=== PATIENT | female | born 1960 | race Caucasian/White ===

== ENCOUNTER → 2016-09-08 | Outpatient (CLI) | payer MEDICAID ==
--- NOTE | 2016-09-09 12:04 | MM ---
Reason for exam: screening (asymptomatic). Last mammogram was performed 1 year and 9 months ago. History: Patient is postmenopausal. Took estrogen for 10 years. Took progesterone for 10 years. Physical Findings: A clinical breast exam by your physician is recommended on an annual basis and results should be correlated with mammographic findings. MG 3D Screening Mammo W/Cad Bilateral CC and MLO view(s) were taken. Prior study comparison: December 11, 2014, right breast MG diagnostic mammo RT w CAD. April 17, 2014, bilateral MG diagnostic mammo w CAD ALETHA. There are scattered fibroglandular densities. No significant changes when compared with prior studies. ASSESSMENT: Benign, BI-RAD 2 RECOMMENDATION: Routine screening mammogram of both breasts in 1 year.
== END | disposition home or self-care (01) ==
LOC: RADMAMWWP 07:58
PROVIDERS: ATTEND Family Medicine
DX: Z12.31 Encounter for screening mammogram for malignant neoplasm of breast (principal)
CPT/HCPCS: 77063; G0202

== ENCOUNTER → 2018-02-05 | Outpatient (CLI) | payer BC ==
[2018-02-05 09:48] LABS: Basophils # (A) 0.1 k/uL (0-0.2); Basophils % (A) 1 %; Eosinophils # (A) 0.2 k/uL (0-0.7); Eosinophils % (A) 3 %; HCT 44.7 % (34.0-46.0); HGB 14.2 gm/dL (11.4-16.0); Lymphocytes # (A) 2.3 k/uL (1.0-4.8); Lymphocytes % (A) 30 %; MCH 28.6 pg (25.0-35.0); MCHC 31.7 g/dL (31.0-37.0); MCV 90.2 fL (80.0-100.0); Mean Platelet Volume 6.9; Monocytes # (A) 0.5 k/uL (0-1.0); Monocytes % (A) 6 %; Neutrophils # (A) 4.5 k/uL (1.3-7.7); Neutrophils % (A) 58 %; Platelet Count 340 k/uL (150-450); RBC 4.96 m/uL (3.80-5.40); RDW 13.4 % (11.5-15.5); WBC 7.7 k/uL (3.8-10.6)
[2018-02-05 10:03] LABS: Anion Gap 12 mmol/L; Blood Urea Nitrogen 14 mg/dL (7-17); Carbon Dioxide 27 mmol/L (22-30); Chloride 105 mmol/L (98-107); Glucose 74 mg/dL (74-99); Potassium 4.1 mmol/L (3.5-5.1); Sodium 144 mmol/L (137-145)
== END | disposition home or self-care (01) ==
LOC: LABPAT 09:25
PROVIDERS: ATTEND Obstetrics & Gynecology
DX: Z01.812 Encounter for preprocedural laboratory examination (principal); N81.6 Rectocele; N39.3 Stress incontinence (female) (male); N36.8 Other specified disorders of urethra
CPT/HCPCS: 80051; 82565; 82947; 84520; 85025; 87086

== ENCOUNTER 2018-02-14 07:55 | Day surgery (SDC) | payer BC ==
[2018-02-03 10:26] VITALS: BMI 29.7
--- NOTE | 2018-02-10 16:44 | HP ---
HISTORY AND PHYSICAL DATE OF PROCEDURE: 02/14/2018 HISTORY: This is a 57-year-old 2, para 2 woman with a history of vaginal hysterectomy who presents with symptomatic rectocele and stress urinary incontinence. She is scheduled to undergo rectocele repair, suburethral sling placement and possible cystocele repair. She complains of frequent stress urinary incontinence as well as an uncomfortable bulging pressure sensation in the vagina. She has difficulty with incomplete bladder emptying and pain with intercourse. ALLERGIES: SULFA MEDICATIONS. PAST MEDICAL HISTORY: None. PAST SURGICAL HISTORY: 1. Total vaginal hysterectomy with unilateral salpingo-oophorectomy in 1992. 2. Abdominal hernia repair x2 in 2000. 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 She has had a hysterectomy. No history of abnormal Pap smears or STDs. SOCIAL HISTORY: She is . Negative for tobacco, alcohol and drug use. MEDICATIONS: 1. Estradiol patch 0.5 mg per 24 hours. 2. Baclofen 10 mg daily. 3. Belsomra 10 mg daily. 4. Claritin-D p.r.n. 5. [place]-3 fish oil. 6. Vitamin D. REVIEW OF SYSTEMS: Positive for pelvic pressure, dyspareunia, stress urinary incontinence. Negative for postmenopausal bleeding, recent weight gain or weight loss, nausea, vomiting, diarrhea, fevers, chills, shortness of breath, chest pain or palpitations. PHYSICAL EXAMINATION: Blood pressure 128/88, height 5 feet 5-3/4 inches, weight 179 pounds. In general, this is a pleasant female in no apparent distress. HEENT exam is unremarkable with no palpable lymphadenopathy or thyromegaly. The lungs are clear to auscultation bilaterally. The heart has a regular rate and rhythm with no detectable murmur. The breasts are free of any palpable lesions. The abdomen is slim, soft and nontender with no rebound, no guarding and no flank pain. On pelvic examination, she has normal female external genitalia with some atrophy. On speculum examination, she does have evidence of a third- to fourth-degree rectocele, second-degree cystocele and well suspended vaginal cuff. She has a hypermobile urethra. On bimanual examination she has no palpable adnexal masses. ASSESSMENT: [id number]-[id number]-[id number]-old 3, para 2 woman with symptomatic large rectocele and stress urinary incontinence. She is scheduled to undergo rectocele repair, suburethral sling placement with Dr. Brielle Yepez and possible cystocele repair on 02/14/2018. Late in her preoperative planning course she did have an abnormal screening EKG, and cardiac clearance is pending. The case will be only undertaken pending complete cardiac clearance. Otherwise she is scheduled for 02/14/2018. MMCONSUELOL / IJN: [id number] /
[~2018-02-14 07:55] MED LIST: DEXAMETHASONE SOD PHOSPHATE 10 MG/ML 1 ML VIAL IV ONE; HYDROmorphone 0.5 MG/0.5 ML SYRINGE IVP PRN; LACTATED RINGERS 1,000 ML IV SCH; LIDOCAINE 1% 20 ML VIAL (10MG/ML) FOR IV START INTRADERMA PRN; MIDAZOLAM 2 MG/2 ML VIAL IV PRN; ONDANSETRON 4 MG/2 ML VIAL IVP ONE; ONDANSETRON 4 MG/2 ML VIAL IVP PRN; SCOPOLAMINE 1.5MG/72HR PATCH TRANSDERM ONE; ceFAZolin IN SWFI 2 GM/20 ML SYRINGE IVP ONE; fentaNYL (PF) 50 MCG/ML 2 ML AMP IV PRN
[2018-02-14] MEDS: LACTATED RINGERS 1,000 ML IV SCH ×2 (08:35→12:39)
[2018-02-14] MEDS ORDERED: HYDROmorphone (PF) 1 MG/ML ONE (09:24)
[2018-02-14] MEDS ORDERED: fentaNYL (PF) 50 MCG/ML 2 ML AMP ONE (09:24)
[2018-02-14] MEDS ORDERED: SUCCINYLCHOLINE CHLORIDE 100 MG/5 ML SYR IV ONE (09:24)
[2018-02-14] MEDS ORDERED: LIDOCAINE 1% INJ 10MG/ML (20 ML MDV) ONE (09:24)
[2018-02-14] MEDS ORDERED: MIDAZOLAM 2 MG/2 ML VIAL ONE (09:24)
[2018-02-14] MEDS ORDERED: PROPOFOL 10 MG/ML 20 ML VIAL IV ONE (09:24)
[2018-02-14] MEDS ORDERED: KETOROLAC 30 MG/ML 1 ML VIAL ONE (09:24)
[2018-02-14] MEDS ORDERED: VASOPRESSIN 20 UNIT/ML 1 ML VIAL SQ ONE (09:53)
[2018-02-14] MEDS ORDERED: BACITRACIN 500 UNIT/GM OINT 28.4 GM TUBE TOPICAL ONE (09:55)
--- NOTE | 2018-02-14 10:39 | P.OP ---
Date of Procedure: 02/14/18 Preoperative Diagnosis: Third-degree rectocele Second-degree cystocele Stress urinary incontinence Postoperative Diagnosis: Same Procedure(s) Performed: Posterior colporrhaphy Suburethral sling placement and cystoscopy Anesthesia: RAZA Surgeon: Ayah Anthony Coat Joiner Lockstitch #1: Brielle Yepez Estimated Blood Loss (ml): 5 IV fluids (ml): 900 Urine output (ml): 400 Pathology: none sent Condition: stable Disposition: PACU Indications for Procedure: Symptomatic pelvic prolapse and stress urinary incontinence Operative Findings: 34th degree rectocele, second degree cystocele, hypermobile urethra. Description of Procedure: After the patient and her were met in preoperative holding area and all questions are answered, she was taken the operating room where anesthetic was administered without incident. She was in positioned, prepped and draped in the dorsal high lithotomy position. The vagina was inspected and examined anesthetic was performed. She does have a gaping introitus and rectocele protruding to the level and beyond of the hymeneal ring. The remnants of the hymeneal ring were delineated with Allis clamps. The perineum and posterior vaginal mucosa was then infused with dilute vasopressin solution. A triangular incision was made on the perineum. The posterior vaginal mucosa was then undermined with Metzenbaum scissors to the apex of the defect. This is delineated with Allis clamps. The underlying rectovaginal tissue was bluntly dissected away from the overlying rectal vaginal mucosa. The rectovaginal fascia was then identified and was reapproximated in an interrupted fashion using 2-0 Vicryl [id number] sutures. This effectively reduced the rectocele. The excess vaginal mucosa was then trimmed. The posterior vaginal mucosa closed in a running locked fashion to the level of the introitus. [place] stitch was then placed into the [id number] sutures were placed to reapproximate the perineal body. The skin Closed Overtop in a Subcuticular Fashion. No Active Bleeding Was Noted. 2 Fingerbreadth Width of Vagina Was Preserved. Case Was Then Turned over This Point to Dr. Anna Performed the CO2 Procedure Please See Her Operative Report for Details. Her
--- NOTE | 2018-02-14 10:59 | P.OP ---
Date of Procedure: 02/14/18 Preoperative Diagnosis: Rectocele, stress urinary incontinence Postoperative Diagnosis: Same Procedure(s) Performed: transobturator tape with obtyrx, diagnostic cystoscopy Anesthesia: SHIVAMA Surgeon: Brielle Yepez Belt Builder Helper #1: Ayah Anthony Estimated Blood Loss (ml): 5 IV fluids (ml): 900 Urine output (ml): 100 (Clear yellow) Pathology: none sent Condition: stable Disposition: PACU Indications for Procedure: Stress urinary incontinence Operative Findings: Grade 2 cystocele was noted on exam with mild mobility of the bladder neck Description of Procedure: Patient was in the operative suite and rectocele repair had just been completed with Dr. lynette willis. I inspected the cyst seal felt it to be mild, the bladder neck was identified and 2 Allis clamps are placed on the vaginal mucosa around the bladder neck. The vaginal mucosa was then injected with dilute vasopressin down the midline and toward the lateral edges. A scalpel was then used to make a small incision in the vaginal mucosa the vaginal mucosa was then dissected off of the bladder and a blunt fashion bilaterally. The concrete finishing machine operator membrane was then palpated on both sides. A stab incision was then made in the lateral groin creases bilaterally. The obtryx trans-obturator tape was then opened, the right hook was then placed through the stab incision in the groin toward the obturator membrane and vaginal incision. The mesh was then attached and pulled through this was then repeated on the opposite side. At this point the Shipman catheter was removed and a diagnostic cystoscopy was performed. Asst. was placed through the urethra and toward the bladder bladder bubble was noted and a complete survey of the bladder revealed no injuries both ureteral orifices were noted to be spilling clear yellow urine. The cystoscopy fluid was removed and the Shipman catheter was replaced. The mesh was then placed snugly, natalioley against the bladder neck. The vaginal mucosa was then closed with 2-0 Vicryl in a running locked fashion. The groin incisions were then closed with Dermabond. Next Patient tolerated procedure well, all counts were correct 2 patient was taken to the recovery room at this point in stable condition
[2018-02-14] MEDS ORDERED: IBUPROFEN 600 MG TAB PO PRN (11:27)
[2018-02-14] MEDS ORDERED: ONDANSETRON 4 MG/2 ML VIAL IVP PRN (11:27)
[2018-02-14] MEDS ORDERED: ESTRADIOL TRANSDERM SCH (11:27)
[2018-02-14] MEDS ORDERED: SIMETHICONE 80 MG CHEWABLE PO PRN (11:27)
[2018-02-14] MEDS ORDERED: METOCLOPRAMIDE 5 MG/ML 2 ML VIAL IVP PRN (11:27)
[2018-02-14] MEDS: KETOROLAC 30 MG/ML 1 ML VIAL IVP PRN ×2 (14:00→20:16)
[2018-02-14] MEDS ORDERED: Acetaminophen-Codeine 300-30mg TAB PO PRN (14:59)
[2018-02-14] MEDS: Acetaminophen-Codeine 300-30mg TAB PO PRN ×2 (15:09→21:20)
[2018-02-14] MEDS: SENNOSIDES-DOCUSATE SODIUM 1 EACH TAB PO SCH (20:17)
[2018-02-15 04:24] VITALS: TEMP 98.1
--- NOTE | 2018-02-15 08:18 | P.DS ---
Providers Expected date of discharge: 02/15/18 Attending physician: Ayah Anthony Primary care physician: Zulma Mcduffie - Discharge Diagnosis(es) (1) Cystocele Current Visit: Yes Status: Acute (2) Rectocele Current Visit: Yes Status: Acute (3) EILEEN (stress urinary incontinence, female) Current Visit: Yes Status: Acute Hospital Course: This is a 57-year-old female who is admitted with symptomatic pelvic prolapse and stress urinary incontinence. Following admission she went to the operating room where she underwent an uncomplicated posterior colporrhaphy and suburethral sling placement. Please see the operative report for details. Her postoperative course was uneventful. By the afternoon of postoperative day 0 she was tolerating a general diet and was ambulating without difficulty. Her pain was controlled with oral pain medications. By postoperative day #1 she continued to do well. She was able to void spontaneously with her Shipman catheter removed. The vaginal packing had been removed and she had no active vaginal bleeding. Her abdomen is soft and nontender and her vital signs are stable. She is therefore discharged home pending satisfactory results of her voiding trials and postoperative CBC. Procedures: Posterior colporrhaphy Suburethral sling placement Patient Condition at Discharge: Good Plan - Discharge Summary Discharge Rx Participant: No New Discharge Prescriptions: New Ibuprofen [Motrin] 800 mg PO Q8HR PRN #30 tab PRN Reason: Pain No Action Estradiol [Estradiol 0.05 MG Patch] 1 patch TRANSDERM Q72H Suvorexant [Belsomra] 10 mg PO HS PRN PRN Reason: Insomnia [place]-3 Fatty Acids/Fish Oil [Fish Oil 1,000 mg Softgel] 1 each PO DAILY Multivitamins, Thera [Multivitamin (formulary)] 1 tab PO DAILY Loratadine-Pseudoeph 10-240 mg [Claritin-D 24 Hr] 1 each PO DAILY PRN PRN Reason: ALLERGIES Baclofen 10 mg PO TID PRN PRN Reason: Muscle Spasm Discharge Medication List Baclofen 10 mg PO TID PRN 02/03/18 [History] Estradiol [Estradiol 0.05 MG Patch] 1 patch TRANSDERM Q72H 02/03/18 [History] Loratadine-Pseudoeph 10-240 mg [Claritin-D 24 Hr] 1 each PO DAILY PRN 02/03/18 [ History] Multivitamins, Thera [Multivitamin (formulary)] 1 tab PO DAILY 02/03/18 [History ] [place]-3 Fatty Acids/Fish Oil [Fish Oil 1,000 mg Softgel] 1 each PO DAILY [History] Suvorexant [Belsomra] 10 mg PO HS PRN 02/03/18 [History] Ibuprofen [Motrin] 800 mg PO Q8HR PRN #30 tab 02/15/18 [Rx] Follow up Appointment(s)/Referral(s): Ayah Anthony MD [STAFF PHYSICIAN] - 2 Weeks Activity/Diet/Wound Care/Special Instructions: Follow-up in the office in 2 weeks postoperatively. May alternate Motrin 800 mg every 8 hours with Tylenol extra strength every 6-8 hours as needed for pain. Use [id number]-[id number] Senokot or Colace as a stool softener once or twice a day as needed for 6 weeks. Call the office with any concerning signs or symptoms including heavy vaginal bleeding, foul vaginal discharge, inability to void, severe abdominal or pelvic pain, swelling or redness of the lower extremities. No intercourse, nothing in the vagina for 6 weeks. Discharge Disposition: HOME SELF-CARE
[2018-02-15 08:56] LABS: Basophils % (A) 0 %; Eosinophils # (A) 0.1 k/uL (0-0.7); Eosinophils % (A) 1 %; HCT 42.1 % (34.0-46.0); HGB 13.6 gm/dL (11.4-16.0); Lymphocytes # (A) 2.4 k/uL (1.0-4.8); Lymphocytes % (A) 15 %; MCHC 32.2 g/dL (31.0-37.0); MCV 89.9 fL (80.0-100.0); Monocytes # (A) 0.8 k/uL (0-1.0); Monocytes % (A) 5 %; Neutrophils # (A) 12.4 k/uL (1.3-7.7); Neutrophils % (A) 78 %; Platelet Count 326 k/uL (150-450); RBC 4.68 m/uL (3.80-5.40); RDW 13.2 % (11.5-15.5); WBC 15.8 k/uL (3.8-10.6)
[2018-02-15] MEDS: SENNOSIDES-DOCUSATE SODIUM 1 EACH TAB PO SCH (09:00)
[2018-02-15 09:40] VITALS: BP 134/76; PULSE 84; RESP 18
[2018-02-15] MEDS ORDERED: ACETAMINOPHEN TAB 325 MG TAB PO PRN (10:41)
== END 2018-02-15 10:49 | disposition home or self-care (01) ==
LOC: OR 07:55 → 4FBP 10:33 → OR 02-15 10:49
PROVIDERS: ATTEND Obstetrics & Gynecology
DX: N81.3 Complete uterovaginal prolapse (principal); N39.3 Stress incontinence (female) (male); Z79.890 Hormone replacement therapy; Z79.899 Other long term (current) drug therapy; Z88.2 Allergy status to sulfonamides; Z82.49 Family history of ischemic heart disease and other diseases of the circulatory system
CPT/HCPCS: 85025; 57288; 57250; C1771; J1100; J2405; J1885; J0690; 86850; 86900; 86901

== ENCOUNTER → 2021-04-08 | Outpatient (CLI) | payer BC ==
--- NOTE | 2021-04-14 12:28 | MM ---
Reason for exam: screening (asymptomatic). Last mammogram was performed 4 years and 7 months ago. History: Patient is postmenopausal. Took estrogen for 10 years. Took progesterone for 10 years. Physical Findings: A clinical breast exam by your physician is recommended on an annual basis and results should be correlated with mammographic findings. MG 3D Screening Mammo W/Cad Bilateral CC and MLO view(s) were taken. Prior study comparison: September 08, 2016, bilateral MG 3d screening mammo w/cad. December 11, 2014, right breast MG diagnostic mammo RT w CAD. There are scattered fibroglandular densities. No significant changes when compared with prior studies. ASSESSMENT: Benign, BI-RAD 2 RECOMMENDATION: Routine screening mammogram of both breasts in 1 year.
== END | disposition home or self-care (01) ==
LOC: RADMAMWWP 14:01
PROVIDERS: ATTEND Obstetrics & Gynecology
DX: Z12.31 Encounter for screening mammogram for malignant neoplasm of breast (principal); Z78.0 Asymptomatic menopausal state; Z79.818 Long term (current) use of other agents affecting estrogen receptors and estrogen levels
CPT/HCPCS: 77063; 77067

== ENCOUNTER 2021-06-07 11:30 | Emergency (ER) | payer BC ==
[2021-06-07 12:05] VITALS: RESP 18; TEMP 98.6
[2021-06-07] MEDS ORDERED: SODIUM CHLORIDE 0.9% 1,000 ML IV STA (12:16)
[2021-06-07] MEDS ORDERED: MORPHINE SULFATE 4 MG/ML SYRINGE IV STA (12:16)
[2021-06-07 12:44] LABS: Basophils # (A) 0.1 k/uL (0-0.2); Basophils % (A) 0 %; Eosinophils # (A) 0.2 k/uL (0-0.7); Eosinophils % (A) 1 %; HCT 49.3 % (34.0-46.0); HGB 16.1 gm/dL (11.4-16.0); Lymphocytes % (A) 6 %; MCH 30.8 pg (25.0-35.0); MCHC 32.7 g/dL (31.0-37.0); MCV 94.2 fL (80.0-100.0); Mean Platelet Volume 7.6; Monocytes # (A) 0.6 k/uL (0-1.0); Monocytes % (A) 3 %; Neutrophils # (A) 16.8 k/uL (1.3-7.7); Neutrophils % (A) 90 %; Platelet Count 339 k/uL (150-450); RBC 5.23 m/uL (3.80-5.40); RDW 12.2 % (11.5-15.5); WBC 18.7 k/uL (3.8-10.6)
--- NOTE | 2021-06-07 12:49 | ED ---
Abdominal Pain HPI - General Chief Complaint: Abdominal Pain Stated Complaint: abd pain Time Seen by Provider: 06/07/21 12:08 Source: patient, RN notes reviewed Mode of arrival: ambulatory Limitations: no limitations - History of Present Illness Initial Comments: Patient is a 60-year-old female that presents to the emergency department complaining of upper abdominal pain. She notes that she does have her gallbladder. She notes that the pain seems to be worse with greasy foods. She notes that last night she ate some bolus wings and cheesy bread. She notes that the pain was approximately a 10 out of 10 last night with minimal relief. She denied any alleviating factors. She notes that at one point she got was her gallbladder over the past several years to try to watch which she last night she is urged. She noted that she was nauseous prior to arrival but is no longer while sitting up in bed. She was otherwise well-appearing. She noted that her pain while in bed was approximately a 6-7 out of 10. She denied any chest pain shortness breath headache nausea vomiting diarrhea constipation fever fatigue chills. - Related Data Home Medications Medication Instructions Recorded Confirmed Baclofen 10 mg PO TID PRN 02/03/18 02/14/18 Loratadine-Pseudoeph 10-240 mg 1 each PO DAILY PRN 02/03/18 02/03/18 [Claritin-D 24 Hr] Multivitamins, Thera [Multivitamin 1 tab PO DAILY 02/03/18 02/03/18 (formulary)] [place]-3 Fatty Acids/Fish Oil [Fish 1 each PO DAILY 02/03/18 02/03/18 Oil 1,000 mg Softgel] Suvorexant [Belsomra] 10 mg PO HS PRN 02/03/18 02/03/18 estradioL [Estradiol 0.05 MG Patch] 1 patch TRANSDERM Q72H 02/03/18 02/14/18 Previous Rx's Medication Instructions Recorded Ibuprofen [Motrin] 800 mg PO Q8HR PRN #30 tab 02/15/18 Allergies Allergy/AdvReac Type Severity Reaction Status Date / Time Sulfa (Sulfonamide Allergy Rash/Hives Verified 06/07/21 12:05 Antibiotics) Review of Systems ROS Statement: Those systems with pertinent positive or pertinent negative responses have been documented in the HPI. ROS Other: All systems not noted in ROS Statement are negative. Past Medical History Past Medical History: No Reported History History of Any Multi-Drug Resistant Organisms: None Reported Past Surgical History: Hernia Repair, Hysterectomy Additional Past Surgical History / Comment(s): INCISIONAL HERNIA REPAIR, rectocele Past Anesthesia/Blood Transfusion Reactions: No Reported Reaction Past Psychological History: No Psychological Hx Reported Smoking Status: Never smoker Past Alcohol Use History: Occasional Past Drug Use History: None Reported - Past Family History Mother Family Medical History: No Reported History General Exam Limitations: no limitations General appearance: alert, in no apparent distress Head exam: Present: atraumatic, normocephalic, normal inspection Eye exam: Present: normal appearance, PERRL, EOMI. Absent: scleral icterus, conjunctival injection, periorbital swelling ENT exam: Present: normal exam, mucous membranes moist Neck exam: Present: normal inspection Respiratory exam: Present: normal lung sounds bilaterally. Absent: respiratory distress, wheezes, rales, rhonchi, stridor Cardiovascular Exam: Present: regular rate, normal rhythm, normal heart sounds. Absent: systolic murmur, diastolic murmur, rubs, gallop, clicks GI/Abdominal exam: Present: soft, tenderness (Right upper quadrant with mild to moderate palpation, left upper quadrant minimal), normal bowel sounds. Absent: distended, guarding, rebound, rigid Extremities exam: Present: normal inspection, full ROM, normal capillary refill. Absent: tenderness, pedal edema, joint swelling, calf tenderness Neurological exam: Present: alert, oriented X3 Psychiatric exam: Present: normal affect, normal mood Skin exam: Present: warm, dry, intact, normal color. Absent: rash Course Vital Signs 06/07/21 12:02 Temperature 98.6 F Pulse Rate 75 Respiratory 18 Rate Blood Pressure 151/84 O2 Sat by Pulse 98 Oximetry Medical Decision Making - Medical Decision Making 60-year-old female complaining of right upper quadrant pain worse with greasy food. Labs, 1 L normal saline, 4 mg morphine, CT abdomen and pelvis ordered. Labs: White blood cells 18.7 hemoglobin 16.1 hematocrit 49.3, patient is dehydrated, CMP unremarkable. CT shows severe bowel uncomplicated colitis. Patient was informed of results from imaging labs and is agreeable with discharge home with follow-up to primary care and GI specialist as soon as possible. Case discussed with Dr. Hall, patient discharge home. In stable condition - Lab Data Result diagrams: 06/07/21 12:37 06/07/21 12:37 Lab Results 06/07/21 06/07/21 06/07/21 Range/Units 12:37 12:37 12:37 WBC 18.7 H (3.8-10.6) k/uL RBC 5.23 (3.80-5.40) m/uL Hgb 16.1 H (11.4-16.0) gm/dL Hct 49.3 H (34.0-46.0) % MCV 94.2 (80.0-100.0) fL MCH 30.8 (25.0-35.0) pg MCHC 32.7 (31.0-37.0) g/dL RDW 12.2 (11.5-15.5) % Plt Count 339 (150-450) k/uL MPV 7.6 Neutrophils % 90 % Lymphocytes % 6 % Monocytes % 3 % Eosinophils % 1 % Basophils % 0 % Neutrophils # 16.8 H (1.3-7.7) k/uL Lymphocytes # 1.0 (1.0-4.8) k/uL Monocytes # 0.6 (0-1.0) k/uL Eosinophils # 0.2 (0-0.7) k/uL Basophils # 0.1 (0-0.2) k/uL Sodium 137 (137-145) mmol/L Potassium 4.4 (3.5-5.1) mmol/L Chloride 104 (98-107) mmol/L Carbon Dioxide 24 (22-30) mmol/L Anion Gap 9 mmol/L BUN 14 (7-17) mg/dL Creatinine 0.63 (0.52-1.04) mg/dL Est GFR (CKD-EPI)AfAm >90 (>60 ml/min/1.73 sqM) Est GFR (CKD-EPI)NonAf >90 (>60 ml/min/1.73 sqM) Glucose 143 H (74-99) mg/dL Plasma Lactic Acid Dwain 1.7 (0.7-2.0) mmol/L Calcium 9.7 (8.4-10.2) mg/dL Total Bilirubin 0.5 (0.2-1.3) mg/dL AST 28 (14-36) U/L ALT 25 (4-34) U/L Alkaline Phosphatase 82 (38-126) U/L Total Protein 6.6 (6.3-8.2) g/dL Albumin 4.1 (3.5-5.0) g/dL Amylase 39 (30-110) U/L Lipase 33 (23-300) U/L - Radiology Data Radiology results: report reviewed, image reviewed Computed tomography scan of the abdomen and pelvis: Fairly severe but uncomplicated full local colitis as detailed above. Differential includes infectious and/or inflammatory etiologies. Moderate to severe wall thickening beginning distal transverse colon through the splenic fracture involving nearly entire left colon with mild surrounding fat stranding. No well-formed fluid collection or abscess no free air normal-appearing appendix incidentally seen. No suspicious small or large bowel dilatation. Disposition Clinical Impression: Colitis Disposition: HOME SELF-CARE Condition: Stable Instructions (If sedation given, give patient instructions): Ulcerative Colitis (ED) Additional Instructions: Please return to the Emergency Department if symptoms worsen or any other concerns. Follow-up with primary care 1-2 days follow-up with GI specialist as soon as possible. Take Tylenol and Motrin as needed for pain. Eat a bowel from the diet, increase oral fluids. Is patient prescribed a controlled substance at d/c from ED?: No Referrals: Zulma Mcduffie MD [Primary Care Provider] - 1-2 days Ericak Ramirez MD [STAFF PHYSICIAN] - 1-2 days Time of Disposition: 14:21
[2021-06-07 12:53] LABS: ALT 25 U/L (4-34); AST 28 U/L (14-36); African American GFR (CKD) >90 (>60 ml/min/1.73 sqM); Albumin 4.1 g/dL (3.5-5.0); Alkaline Phosphatase 82 U/L (38-126); Amylase 39 U/L (30-110); Anion Gap 9 mmol/L; Blood Urea Nitrogen 14 mg/dL (7-17); Calcium 9.7 mg/dL (8.4-10.2); Carbon Dioxide 24 mmol/L (22-30); Chloride 104 mmol/L (98-107); Glucose 143 mg/dL (74-99); Lipase 33 U/L (23-300); Non-African American GFR(CKD) >90 (>60 ml/min/1.73 sqM); Potassium 4.4 mmol/L (3.5-5.1); Sodium 137 mmol/L (137-145); Total Bilirubin 0.5 mg/dL (0.2-1.3); Total Protein 6.6 g/dL (6.3-8.2)
--- NOTE | 2021-06-07 14:03 | CT ---
EXAMINATION TYPE: CT abdomen pelvis w con DATE OF EXAM: 06/07/2021 HISTORY: Abdominal pain not further specified. CT DLP: 1025.4mGycm Automated Exposure Control for Dose Reduction was Utilized. CONTRAST: CT scan of the abdomen and pelvis is performed without oral but with IV Contrast, patient injected wi th 100 ml mL of Isovue 300. COMPARISON: None. FINDINGS: LUNG BASES: No significant abnormality is appreciated. LIVER/GB: No significant abnormality is appreciated. PANCREAS: No significant abnormality is seen. SPLEEN: No significant abnormality is seen. ADRENALS: No significant abnormality is seen. KIDNEYS: No significant abnormality is seen. BOWEL: Moderate to severe wall thickening beginning distal transverse colon through the splenic flexu re involving nearly entire left colon with mild surrounding fat stranding. No well-formed fluid colle ction or abscess. No free air. Normal-appearing appendix incidentally seen. No suspicious small or la rge bowel dilatation UTERUS/ADNEXA: Uterus is surgically absent or markedly atrophic. LYMPH NODES: No greater than 1cm abdominal or pelvic lymph nodes are appreciated. OSSEOUS STRUCTURES: Transitional-type vertebra at lumbosacral junction. OTHER: Mild calcified plaque of the aorta extends into branch vessels. IMPRESSION: Fairly severe but uncomplicated focal colitis as detailed above. Differential includes in fectious and/or inflammatory etiologies. Correlate clinically.
[2021-06-07 14:42] VITALS: BP 157/84; PULSE 74
== END 2021-06-07 14:42 | disposition home or self-care (01) ==
LOC: EC 11:30
DX: K52.9 Noninfective gastroenteritis and colitis, unspecified (principal); Z79.1 Long term (current) use of non-steroidal anti-inflammatories (NSAID); Z88.2 Allergy status to sulfonamides
CPT/HCPCS: 80053; 82150; 83605; 83690; 85025; 74177; 96374; 96361; 99284; J2270; Q9967

== ENCOUNTER 2024-02-05 13:45 | Emergency (ER) | payer BC ==
[2024-02-05 14:12] VITALS: TEMP 98.4
--- NOTE | 2024-02-05 15:00 | ED ---
Abdominal Pain HPI - General Chief Complaint: Abdominal Pain Stated Complaint: Abn labs Time Seen by Provider: 02/05/24 14:35 Source: patient, RN notes reviewed Mode of arrival: ambulatory Limitations: no limitations - History of Present Illness Initial Comments: 63-year-old female with no significant past medical history presenting with left-sided flank pain x 1 week that is worsening. She is also experiencing urinary frequency. She was seen at her PCP clinic 2 days ago where they diagnosed her with a UTI and started her on Macrobid. She states at that time they told her there was blood and protein in the urine. She reports no improvement with the antibiotics and is now experiencing nausea and bodyaches. States the left-sided flank pain radiates into the left abdomen. She is able to tolerate orals. She denies any alleviating or exacerbating factors. Denies any fever or chills. Denies history of kidney stones. - Related Data Home Medications Medication Instructions Recorded Confirmed Baclofen 10 mg PO TID PRN 02/03/18 02/14/18 Loratadine-Pseudoeph 10-240 mg 1 each PO DAILY PRN 02/03/18 02/03/18 [Claritin-D 24 Hr] Multivitamins, Thera [Multivitamin 1 tab PO DAILY 02/03/18 02/03/18 (formulary)] [place]-3 Fatty Acids/Fish Oil [Fish 1 each PO DAILY 02/03/18 02/03/18 Oil 1,000 mg Softgel] Suvorexant [Belsomra] 10 mg PO HS PRN 02/03/18 02/03/18 estradioL [Estradiol 0.05 MG Patch] 1 patch TRANSDERM Q72H 02/03/18 02/14/18 Previous Rx's Medication Instructions Recorded Ibuprofen [Motrin] 800 mg PO Q8HR PRN #30 tab 02/15/18 Ciprofloxacin HCl [Cipro] 500 mg PO BID 7 Days #14 tab 02/05/24 Allergies Allergy/AdvReac Type Severity Reaction Status Date / Time Sulfa (Sulfonamide Allergy Rash/Hives Verified 02/05/24 14:11 Antibiotics) Review of Systems ROS Statement: Those systems with pertinent positive or pertinent negative responses have been documented in the HPI. ROS Other: All systems not noted in ROS Statement are negative. Past Medical History Past Medical History: No Reported History History of Any Multi-Drug Resistant Organisms: None Reported Past Surgical History: Hernia Repair, Hysterectomy Additional Past Surgical History / Comment(s): INCISIONAL HERNIA REPAIR, rectocele Past Anesthesia/Blood Transfusion Reactions: No Reported Reaction Past Psychological History: No Psychological Hx Reported Smoking Status: Never smoker Past Alcohol Use History: Occasional Past Drug Use History: None Reported - Past Family History Mother Family Medical History: No Reported History General Exam Limitations: no limitations General appearance: alert, in no apparent distress Respiratory exam: Present: normal lung sounds bilaterally. Absent: respiratory distress, wheezes, rales, rhonchi, stridor Cardiovascular Exam: Present: regular rate, normal rhythm, normal heart sounds. Absent: systolic murmur, diastolic murmur, rubs, gallop, clicks GI/Abdominal exam: Present: soft, normal bowel sounds. Absent: distended, tenderness, guarding, rebound, rigid Back exam: Present: CVA tenderness (L). Absent: CVA tenderness (R) Neurological exam: Present: alert, oriented X3, CN II-XII intact Psychiatric exam: Present: normal affect, normal mood Skin exam: Present: warm, dry, intact, normal color. Absent: rash Course Vital Signs 02/05/24 02/05/24 14:07 18:11 Temperature 98.4 F Pulse Rate 90 91 Respiratory 20 18 Rate Blood Pressure 124/72 120/70 O2 Sat by Pulse 98 Oximetry Medical Decision Making - Medical Decision Making Was pt. sent in by a medical professional or institution ([facility]er, PALLIATIVE CARE SPECIALIST, urgent care, hospital, or group home...) When possible be specific @ -No Did you speak to anyone other than the patient for history (EMS, parent, family, police, friend...)? What history was obtained from this source @ -No Did you review nursing and triage notes (agree or disagree)? Why? @ -I reviewed and agree with nursing and triage notes Were old charts reviewed (outside hosp., previous admission, EMS record, old EKG, old radiological studies, urgent care reports/EKG's, group home records)? Report findings @ -No old charts were reviewed Differential Diagnosis (chest pain, altered mental status, abdominal pain women, abdominal pain men, vaginal bleeding, weakness, fever, dyspnea, syncope, headache, dizziness, GI bleed, back pain, seizure, CVA, palpatations, mental health, musculoskeletal)? @ -Differential Abdominal Pain Women: Appendicitis, Cholecystitis, diverticulosis, ischemic bowel, pancreatitis, hepatitis, UTI, gastroenteritis, AAA, incarcerated hernia, bowel obstruction, constipation, inflammatory bowel, hepatitis, peptic ulcer disease, splenic infarction, perforated viscus, vulvitis, ovarian torsion, PID, kidney stone, placenta abruption, this is not meant to be an all-inclusive list EKG interpreted by me (3pts min.). @ -None X-rays interpreted by me (1pt min.). @ -None done CT interpreted by me (1pt min.). @ -CT revealed perinephric stranding without hydronephrosis or hydroureter U/S interpreted by me (1pt. min.). @ -None done What testing was considered but not performed or refused? (CT, X-rays, U/S, labs)? Why? @ -None What meds were considered but not given or refused? Why? @ -None Did you discuss the management of the patient with other professionals (professionals i.e. , PA, PALLIATIVE CARE SPECIALIST, lab, RT, psych nurse, hospice social worker, telephone instrument supervisor, teacher, liaison officer, case operator)? Give summary @ -No Was smoking cessation discussed for >3mins.? @ -No Was critical care preformed (if so, how long)? @ -No Were there social determinants of health that impacted care today? How? (Homelessness, low income, unemployed, alcoholism, drug addiction, transportation, low edu. Level, literacy, decrease access to med. care, long-term, rehab)? @ -No Was there de-escalation of care discussed even if they declined (Discuss DNR or withdrawal of care, Hospice)? DNR status @ -No What co-morbidities impacted this encounter? (DM, HTN, Smoking, COPD, CAD, Cancer, CVA, ARF, Chemo, Hep., AIDS, mental health diagnosis, sleep apnea, morbid obesity)? @ -None Was patient admitted / discharged? Hospital course, mention meds given and route, prescriptions, significant lab abnormalities, going to OR and other pertinent info. @ -Patient was discharged. Patient was seen and evaluated for left flank pain x 1 week. Patient was diagnosed with UTI 2 days ago and started on Macrobid without improvement. Patient's vitals are stable. Physical examination is remarkable for left CVA tenderness. Patient was given IV fluids, Zofran, and Toradol which improved symptoms. Patient is tolerating orals well. Lab work remarkable for white blood cell count of 15 with mildly elevated liver enzymes. CT revealed perinephric stranding without hydronephrosis or hydroureter. Urine reveals minimal ketones and 11 white blood cells, negative for blood. Pallavi gnosis of left pyelonephritis discussed with patient. Discussed that due to patient being afebrile and able to tolerate orals, it is reasonable at this time to discharge patient with strict return precautions. Patient given Rocephin injection before discharge. Supportive care discussed. Red flag symptoms discussed with patient in detail and she shows understanding and agrees to plan. Prescribed ciprofloxacin. Advise close follow-up with PCP in 1 to 3 days for reevaluation. Patient discharged in stable condition. Case discussed with Dr. Mccullough. Undiagnosed new problem with uncertain prognosis? @ -No Drug Therapy requiring intensive monitoring for toxicity (Heparin, Nitro, Insulin, Cardizem)? @ -No Were any procedures done? @ -No Diagnosis/symptom? @ -Left pyelonephritis Acute, or Chronic, or Acute on Chronic? @ -Acute Uncomplicated (without systemic symptoms) or Complicated (systemic symptoms)? @ -Uncomplicated Side effects of treatment? @ -No Exacerbation, Progression, or Severe Exacerbation? @ -No Poses a threat to life or bodily function? How? (Chest pain, USA, MS, pneumonia, PE, COPD, DKA, ARF, appy, cholecystitis, CVA, Diverticulitis, Homicidal, Suicidal, threat to staff... and all critical care pts) @ -Low likelihood - Lab Data Result diagrams: 02/05/24 16:23 02/05/24 16:23 Lab Results 02/05/24 02/05/24 02/05/24 Range/Units 16:23 16:23 16:23 WBC 15.2 H (3.8-10.6) k/uL RBC 4.85 (3.80-5.40) m/uL Hgb 14.5 (11.4-16.0) gm/dL Hct 45.5 (34.0-46.0) % MCV 93.8 (80.0-100.0) fL MCH 30.0 (25.0-35.0) pg MCHC 31.9 (31.0-37.0) g/dL RDW 12.6 (11.5-15.5) % Plt Count 281 (150-450) k/uL MPV 7.6 Neutrophils % 84 % Lymphocytes % 8 % Monocytes % 6 % Eosinophils % 0 % Basophils % 0 % Neutrophils # 12.7 H (1.3-7.7) k/uL Lymphocytes # 1.2 (1.0-4.8) k/uL Monocytes # 1.0 (0-1.0) k/uL Eosinophils # 0.0 (0-0.7) k/uL Basophils # 0.1 (0-0.2) k/uL Sodium 135 L (137-145) mmol/L Potassium 3.8 (3.5-5.1) mmol/L Chloride 103 (98-107) mmol/L Carbon Dioxide 28 (22-30) mmol/L Anion Gap 4 mmol/L BUN 9 (7-17) mg/dL Creatinine 0.73 (0.52-1.04) mg/dL Est GFR (CKD-EPI)AfAm >90 (>60 ml/min/1.73 sqM) Est GFR (CKD-EPI)NonAf 89 (>60 ml/min/1.73 sqM) Glucose 107 H (74-99) mg/dL Plasma Lactic Acid Dwain 0.8 (0.7-2.0) mmol/L Calcium 8.7 (8.4-10.2) mg/dL Total Bilirubin 0.6 (0.2-1.3) mg/dL AST 79 H (14-36) U/L ALT 141 H (4-34) U/L Alkaline Phosphatase 153 H (38-126) U/L Total Protein 6.0 L (6.3-8.2) g/dL Albumin 3.5 (3.5-5.0) g/dL Lipase 25 (23-300) U/L Urine Color Urine Appearance (Clear) Urine pH (5.0-8.0) Ur Specific [place] (1.001-1.035) Urine Protein (Negative) Urine Glucose (UA) (Negative) Urine Ketones (Negative) Urine Blood (Negative) Urine Nitrite (Negative) Urine Bilirubin (Negative) Urine Urobilinogen (<2.0) mg/dL Ur Leukocyte Esterase (Negative) Urine RBC (0-5) /hpf Urine WBC (0-5) /hpf Ur Squamous Epith Cells (0-4) /hpf Urine Mucus (None) /hpf 02/05/24 Range/Units 18:28 WBC (3.8-10.6) k/uL RBC (3.80-5.40) m/uL Hgb (11.4-16.0) gm/dL Hct (34.0-46.0) % MCV (80.0-100.0) fL MCH (25.0-35.0) pg MCHC (31.0-37.0) g/dL RDW (11.5-15.5) % Plt Count (150-450) k/uL MPV Neutrophils % % Lymphocytes % % Monocytes % % Eosinophils % % Basophils % % Neutrophils # (1.3-7.7) k/uL Lymphocytes # (1.0-4.8) k/uL Monocytes # (0-1.0) k/uL Eosinophils # (0-0.7) k/uL Basophils # (0-0.2) k/uL Sodium (137-145) mmol/L Potassium (3.5-5.1) mmol/L Chloride (98-107) mmol/L Carbon Dioxide (22-30) mmol/L Anion Gap mmol/L BUN (7-17) mg/dL Creatinine (0.52-1.04) mg/dL Est GFR (CKD-EPI)AfAm (>60 ml/min/1.73 sqM) Est GFR (CKD-EPI)NonAf (>60 ml/min/1.73 sqM) Glucose (74-99) mg/dL Plasma Lactic Acid Dwain (0.7-2.0) mmol/L Calcium (8.4-10.2) mg/dL Total Bilirubin (0.2-1.3) mg/dL AST (14-36) U/L ALT (4-34) U/L Alkaline Phosphatase (38-126) U/L Total Protein (6.3-8.2) g/dL Albumin (3.5-5.0) g/dL Lipase (23-300) U/L Urine Color Yellow Urine Appearance Clear (Clear) Urine pH 6.0 (5.0-8.0) Ur Specific [place] 1.013 (1.001-1.035) Urine Protein Trace H (Negative) Urine Glucose (UA) Negative (Negative) Urine Ketones 1+ H (Negative) Urine Blood Negative (Negative) Urine Nitrite Negative (Negative) Urine Bilirubin Negative (Negative) Urine Urobilinogen <2.0 (<2.0) mg/dL Ur Leukocyte Esterase Moderate H (Negative) Urine RBC 2 (0-5) /hpf Urine WBC 11 H (0-5) /hpf Ur Squamous Epith Cells 1 (0-4) /hpf Urine Mucus Rare H (None) /hpf Disposition Clinical Impression: Pyelonephritis of left kidney Disposition: HOME SELF-CARE Condition: Stable Instructions (If sedation given, give patient instructions): Kidney Infection (ED) Additional Instructions: Please take full course of Ciprofloxacin. Please return to the Emergency Department if symptoms worsen or any other concerns. Prescriptions: Ciprofloxacin HCl [Cipro] 500 mg PO BID 7 Days #14 tab Is patient prescribed a controlled substance at d/c from ED?: No Referrals: Kota Massey MD [Primary Care Provider] - 1-2 days Time of Disposition: 18:49
--- NOTE | 2024-02-05 16:21 | CT ---
EXAMINATION TYPE: CT abdomen pelvis wo con DATE OF EXAM: 02/05/2024 COMPARISON: 06-26 INDICATION: Bilateral flank pain radiating towards groin x 1 year. DLP: 650 mGycm, Automated exposure control for dose reduction was used. CONTRAST: 0 mL of Isovue 300. Study performed without Oral Contrast TECHNIQUE: Axial images were obtained from above the diaphragm to the pubic rami in the axial plane a t 5 mm thick sections. Reconstructed images are reviewed on the computer in the coronal plane. FINDINGS: Limited CT sections are obtained the lung bases. The lung bases are clear. CT ABDOMEN: Liver: Normal Spleen: Normal Pancreas: Normal Adrenal glands: The adrenal glands are normal. Gallbladder: Normal Kidneys: Left perinephric stranding is present. No obstructing renal or ureteral stones are evident. No suspicious calcifications within the urinary bladder. Consider recent passage of a renal stone. No masses are evident. No hydronephrosis is present. No cysts are present. Aorta: Vascular calcification is within the aorta. Inferior vena cava: Normal. CT PELVIS: Loops of bowel within the abdomen and pelvis are normal. There are loops of bowel which are incom pletely distended or lack oral contrast limiting their evaluation. Appendix: Normal as visualized. Urinary bladder: Normal. Genitourinary structures: Uterus and ovaries are identified. Osseous structures: No suspicious lytic or sclerotic lesions. IMPRESSION: 1. Perinephric stranding without hydronephrosis or hydroureter. Consider recent passage of a left re nal stone.
[2024-02-05] MEDS: KETOROLAC 15 MG/ML 1 ML VIAL IVP STA ×2 (16:37→17:14)
[2024-02-05] MEDS: ONDANSETRON 4 MG/2 ML VIAL IVP STA (16:38)
[2024-02-05] MEDS: SODIUM CHLORIDE 0.9% 1,000 ML IV STA (16:38)
[2024-02-05 16:42] LABS: Basophils # (A) 0.1 k/uL (0-0.2); Basophils % (A) 0 %; Eosinophils % (A) 0 %; HCT 45.5 % (34.0-46.0); HGB 14.5 gm/dL (11.4-16.0); Lymphocytes # (A) 1.2 k/uL (1.0-4.8); Lymphocytes % (A) 8 %; MCHC 31.9 g/dL (31.0-37.0); MCV 93.8 fL (80.0-100.0); Mean Platelet Volume 7.6; Monocytes % (A) 6 %; Neutrophils # (A) 12.7 k/uL (1.3-7.7); Neutrophils % (A) 84 %; Platelet Count 281 k/uL (150-450); RBC 4.85 m/uL (3.80-5.40); RDW 12.6 % (11.5-15.5); WBC 15.2 k/uL (3.8-10.6)
[2024-02-05 16:55] LABS: ALT 141 U/L (4-34); AST 79 U/L (14-36); African American GFR (CKD) >90 (>60 ml/min/1.73 sqM); Albumin 3.5 g/dL (3.5-5.0); Alkaline Phosphatase 153 U/L (38-126); Anion Gap 4 mmol/L; Blood Urea Nitrogen 9 mg/dL (7-17); Calcium 8.7 mg/dL (8.4-10.2); Carbon Dioxide 28 mmol/L (22-30); Chloride 103 mmol/L (98-107); Glucose 107 mg/dL (74-99); Lipase 25 U/L (23-300); Non-African American GFR(CKD) 89 (>60 ml/min/1.73 sqM); Potassium 3.8 mmol/L (3.5-5.1); Sodium 135 mmol/L (137-145); Total Bilirubin 0.6 mg/dL (0.2-1.3)
[2024-02-05 18:34] LABS: Appearance,Urine Clear (Clear); Bilirubin,Urine Negative (Negative); Blood,Urine Negative (Negative); Color,Urine Yellow; Glucose,Urine (UA) Negative (Negative); Ketones,Urine 1+ (Negative); Leukocyte Esterase,Urine Moderate (Negative); Mucus,Urine Rare /hpf; Nitrite,Urine Negative (Negative); Protein,Urine Trace (Negative); RBC,Urine 2 /hpf (0-5); Specific Gravity,Urine 1.013 (1.001-1.035); Squamous Epithelial Cell,Urine 1 /hpf (0-4); Urobilinogen,Urine <2.0 mg/dL (<2.0); WBC,Urine 11 /hpf (0-5)
[2024-02-05] MEDS: cefTRIAXone IN SWFI 1,000 MG/10 ML SYRINGE IVP STA (18:57)
[2024-02-05 19:00] VITALS: BP 120/70; PULSE 91; RESP 18
== END 2024-02-05 19:08 | disposition home or self-care (01) ==
LOC: SUPCPDRO 13:45 → EC 13:45
DX: N12 Tubulo-interstitial nephritis, not specified as acute or chronic (principal); R74.01 Elevation of levels of liver transaminase levels; Z88.2 Allergy status to sulfonamides
CPT/HCPCS: 36415; 80053; 83605; 83690; 85025; 81001; 87086; 74176; 99284; 96374; 96375 ×2; 96376; 96361; J2405; J0696; J1885

== ENCOUNTER → 2025-01-19 | Outpatient (CLI) | payer OTHER ==
--- NOTE | 2025-01-19 14:49 | MM ---
Reason for Exam: Screening (asymptomatic). Last mammogram was performed 1 year(s) and 4 month(s) ago. Patient History: Menarche at age 14. First Full-Term at age 18. Right ovary removed at age 31. Hysterectomy at age 31. Postmenopausal. Patient used Estrogen for 10 years. Patient used Progesterone for 10 years. Daughter had breast cancer, age 43. Risk Values: Lian 5 year model risk: 2.9%. NCI Lifetime model risk: 12.1%. Prior Study Comparison: 09/08/2016 Bilateral Screening Mammogram, [facility]. 04/08/2021 Bilateral Screening Mammogram, [facility]. 09/09/2023 Bilateral MG 3D screening mammo w/cad, Unknown. Tissue Density: There are scattered areas of fibroglandular density. Findings: Analyzed By CAD. There is no suspicious new group of microcalcifications or new suspicious mass in either breast. Overall Assessment: Negative, BI-RAD 1 Management: Screening Mammogram of both breasts in 1 year. . Patient should continue monthly self-breast exams. A clinical breast exam by your physician is recommended on an annual basis. This exam should not preclude additional follow-up of suspicious palpable abnormalities. Note on Lian scores and lifetime risk: 1. A Lian score greater than 3% is considered moderate risk. If this is the case, consider specialist referral to assess eligibility for a risk reducing agent. 2. If overall lifetime risk for the development of breast cancer is 20% or higher, the patient may qualify for future screening with alternating mammogram and breast MRI. [facility], , 01/19/2025 2:46 PM. Electronically signed and approved by: Eamon Allred M.D.
== END | disposition home or self-care (01) ==
LOC: RADMAMWWP 13:55
PROVIDERS: ATTEND Family Medicine
DX: Z12.31 Encounter for screening mammogram for malignant neoplasm of breast (principal); R92.323 Mammographic fibroglandular density, bilateral breasts; Z78.0 Asymptomatic menopausal state; Z80.3 Family history of malignant neoplasm of breast
CPT/HCPCS: 77063; 77067